=== PATIENT | male | born 1950 | race Asian ===

== ENCOUNTER 2021-09-24 21:59 | Emergency (ER) | payer MEDICARE, OTHER ==
[~2021-09-24] VITALS: Ht 167.6 cm; Wt 70.5 kg
[2021-09-24 22:26] LABS: GLUCOMETER DEV NAME(LOC) ERT.5; GLUCOSE,POINT OF CARE 175 MG/DL (70-110)
[2021-09-24] MEDS ORDERED: PERTUSS(ACELL),DIPH,TET VAC/PF 0.5 ML SYRINGE IM. ONE (23:45)
[2021-09-24] MEDS ORDERED: LIDOCAINE 1% 10 ML VIAL PERC ONE (23:45)
[2021-09-25] MEDS ORDERED: BACITRACIN 0.9 GM PACKET OINTMENT TP ONE ×2 (01:31→01:45)
[2021-09-25 03:59] VITALS: BP 145/76
== END 2021-09-25 04:00 | disposition home or self-care (01) ==
LOC: EMS 22:07
DX: S61.411A Laceration without foreign body of right hand, initial encounter (principal); I10 Essential (primary) hypertension; E11.9 Type 2 diabetes mellitus without complications; E78.00 Pure hypercholesterolemia, unspecified; W18.39XA Other fall on same level, initial encounter; Y93.89 Activity, other specified; Y92.89 Other specified places as the place of occurrence of the external cause; Y99.8 Other external cause status
CPT/HCPCS: 12002; 73130; 82962; 90471; 90715; 99283; J3490